=== PATIENT | female | born 2000 | race Two or more races ===

== ENCOUNTER 2018-07-25 06:05 | Inpatient (IN) | payer OTHER ==
[~2018-07-25] VITALS: Ht 160 cm; Wt 84.4 kg
[2018-07-25] MEDS ORDERED: PRENATAL FORMU1 EAC1 PO (08:27)
== END 2018-07-28 15:05 | disposition home or self-care (01) | DRG 788 ==
LOC: LDR 06:05 → OB/GYN 06:05 → LDR 06:23 → OB/GYN 20:46
PROVIDERS: ADMIT Obstetrics & Gynecology
PROC: 3E0P7VZ Introduction of Hormone into Female Reproductive, Via Natural or Artificial Opening (ICD-10-PCS; 2018-07-25)
PROC: 3E033VJ Introduction of Other Hormone into Peripheral Vein, Percutaneous Approach (ICD-10-PCS; 2018-07-25)
PROC: 4A1HXCZ Monitoring of Products of Conception, Cardiac Rate, External Approach (ICD-10-PCS; 2018-07-25)
PROC: 10D00Z1 Extraction of Products of Conception, Low, Open Approach (ICD-10-PCS; principal; 2018-07-25 17:00)
DX: O61.0 Failed medical induction of labor (principal); Z3A.39 39 weeks gestation of pregnancy; Z37.0 Single live birth